=== PATIENT | female | born 1935 | race African-American/Black ===

== ENCOUNTER 2017-07-27 10:37 | Outpatient (CLI) | payer MEDICARE, OTHER | END 2017-07-27 10:38 | disposition home or self-care (01) | LOC: BICMAMMO 10:37 | DX: Z12.31 Encounter for screening mammogram for malignant neoplasm of breast (principal); Z80.3 Family history of malignant neoplasm of breast | CPT/HCPCS: 77063; 77067 ==

== ENCOUNTER 2018-08-06 13:03 | Outpatient (CLI) | payer MEDICARE, OTHER ==
--- NOTE | 2018-08-22 15:48 | MMO ---
Bilateral MAMMO Bilat Screen [facility]. CLINICAL HISTORY: Patient is 83 years old and is seen for screening. The patient has the following family history of breast cancer: daughter, at age 31, premenopausal. The patient has no personal history of cancer. The patient has a history of right Stereotatic Biopsy in SEPTEMBER 2002 - benign. VIEWS: The views performed were: bilateral craniocaudal with tomosynthesis and bilateral mediolateral oblique with tomosynthesis. FILMS COMPARED: The present examination has been compared to prior imaging studies performed at [facility] on 08/31/2000, 09/04/2001, 09/10/2002, 03/25/2003, 03/30/2004, 04/05/2005, 04/10/2006, 05/03/2007, 05/13/2009, 05/17/2010, 05/24/2011, 05/29/2012, 06/06/2014, 06/09/2015, 06/13/2016 and 07/27/2017. MAMMOGRAM FINDINGS: There are scattered fibroglandular densities. There are benign appearing calcifications seen in both breasts. There are no suspicious masses, suspicious calcifications, or new areas of architectural distortion. IMPRESSION: THERE IS NO MAMMOGRAPHIC EVIDENCE OF MALIGNANCY. A ROUTINE FOLLOW-UP MAMMOGRAM IN 1 YEAR IS RECOMMENDED. THE RESULTS OF THIS EXAM WERE SENT TO THE PATIENT. ACR BI-RADS Category 2 - Benign finding MAMMOGRAPHY NOTE: 1. A negative mammogram report should not delay a biopsy if a dominant of clinically suspicious mass is present. 2. Approximately 10% to 15% of breast cancers are not detected by mammography. 3. Adenosis and dense breasts may obscure an underlying neoplasm.
== END 2018-08-06 13:04 | disposition home or self-care (01) ==
LOC: BICMAMMO 13:03
DX: Z12.31 Encounter for screening mammogram for malignant neoplasm of breast (principal); Z13.820 Encounter for screening for osteoporosis; Z78.0 Asymptomatic menopausal state; Z80.3 Family history of malignant neoplasm of breast
CPT/HCPCS: 77063; 77067